=== PATIENT | female | born 1990 | race American Indian/Alaskan Native ===

== ENCOUNTER 2017-09-09 11:20 | Emergency (ER) | payer OTHER ==
[2017-09-09 11:37] VITALS: BMI 18.0
[2017-09-09 11:41] VITALS: RESP 18; O2SAT 99
[2017-09-09] MEDS ORDERED: Sodium Chloride 0.9% 1,000 ML IV STA (11:50)
--- NOTE | 2017-09-09 11:55 | ED PDOC ---
Arrival/HPI - General Chief Complaint: Headache Time Seen by Provider: 09/09/17 11:37 Historian: Patient - History of Present Illness Time/Duration: Other (this morning) Symptom Onset: Gradual Symptom Course: Worsening Quality: Aching Severity Level: Moderate Activities at Onset: Rest Associated Symptoms (Text): 09/09/17 11:52 Patient reports a history of sickle cell anemia. She reports that this morning she woke up with multiple joint pains both elbows and knees and hips. She reports this is her usual crisis. She also reports that she tripped and fell in the kitchen yesterday falling forward and striking her forehead against a wall. She complains of a headache today. No loss of consciousness. No syncope. No dizziness or lightheadedness. No numbness tingling or paresthesias. No weakness. No nausea or vomiting. No neck pain. No back pain. No cough congestion or URI. No shortness of breath. No abdominal pain. No genitourinary symptoms. No travel or exposure. LMP was 3 days ago. No fever or chills. Past Medical History - Cardiac Hx Cardiac Disorders: No - Pulmonary Hx Respiratory Disorders: No - Neurological Hx Neurological Disorder: No - HEENT Hx HEENT Disorder: No - Renal Hx Renal Disorder: No - Endocrine/Metabolic Hx Endocrine Disorders: No - Hematological/Oncological Hx Blood Disorders: Yes Hx Sickle Cell Disease: Yes - Integumentary Hx Dermatological Disorder: No - Musculoskeletal/Rheumatological Hx Musculoskeletal Disorders: No - Gastrointestinal Hx Gastrointestinal Disorders: No - Genitourinary/Gynecological Hx Genitourinary Disorders: No - Psychiatric Hx Psychophysiologic Disorder: No Hx Substance Use: No Family/Social History - Physician Review Nursing Documentation Reviewed: Yes Family/Social History: Unknown Family HX Smoking Status: Never Smoked Hx Alcohol Use: No Hx Substance Use: No Allergies/Home Meds Allergies/Adverse Reactions: Allergies apple Adverse Reaction (Verified 09/09/17 11:36) VOMITING banana Adverse Reaction (Verified 09/09/17 11:36) VOMITING peach Adverse Reaction (Verified 09/09/17 11:36) VOMITING pear Adverse Reaction (Verified 09/09/17 11:36) VOMITING pineapple Adverse Reaction (Verified 09/09/17 11:36) VOMITING strawberry Adverse Reaction (Verified 09/09/17 11:36) VOMITING Review of Systems - Physician Review All systems were reviewed & negative as marked: Yes - Review of Systems Constitutional: absent: Fatigue, Fevers Respiratory: absent: SOB, Cough, Sputum, Wheezing Cardiovascular: absent: Chest Pain, Palpitations, Syncope Gastrointestinal: absent: Abdominal Pain, Nausea, Vomiting Genitourinary Female: absent: Dysuria, Frequency, Hematuria, Vaginal Bleeding, Vaginal Discharge Musculoskeletal: Arthralgias. absent: Back Pain, Neck Pain Neurological: Headache. absent: Dizziness, Focal Weakness, Gait Changes, Speech Changes, Facial Droop, Disequilibrium, Seizure Physical Exam Vital Signs Temp Pulse Resp BP Pulse Ox 09/09/17 13:25 72 18 108/64 99 09/09/17 11:40 79 18 99 09/09/17 11:36 97.9 F 123/83 Temperature: Afebrile Blood Pressure: Normal Pulse: Regular Respiratory Rate: Normal Appearance: Positive for: Well-Appearing, Non-Toxic, Comfortable, Other ( appears comfortable and in no distress.) Pain Distress: None Mental Status: Positive for: Alert and Oriented X 3 - Systems Exam Head: Present: Atraumatic, Normocephalic Pupils: Present: PERRL Extroacular Muscles: Present: EOMI Conjunctiva: Present: Normal Ears: Present: NORMAL TM, Normal Canal. No: Erythema Mouth: Present: Moist Mucous Membranes Pharnyx: No: ERYTHEMA, EXUDATE, TONSILS ENLARGED Neck: Present: Normal Range of Motion Respiratory/Chest: Present: Clear to Auscultation, Good Air Exchange. No: Respiratory Distress, Accessory Muscle Use Cardiovascular: Present: Regular Rate and Rhythm, Normal S1, S2. No: Murmurs Abdomen: No: Tenderness, Distention, Peritoneal Signs, Rebound, Guarding Back: Present: Normal Inspection. No: CVA Tenderness, Midline Tenderness, Paraspinal Tenderness Upper Extremity: Present: Normal Inspection, Normal ROM, NORMAL PULSES, Neurovascularly Intact. No: Cyanosis, Edema, Tenderness, Swelling, Erythema, Deformity Lower Extremity: Present: Normal Inspection, Normal ROM, Neurovascularly Intact. No: Edema, CALF TENDERNESS, Tenderness, Swelling, Erythema, Deformity Neurological: Present: GCS=15, CN II-XII Intact, Speech Normal Skin: Present: Warm, Dry, Normal Color. No: Rashes Psychiatric: Present: Alert, Oriented x 3, Normal Insight, Normal Concentration Medical Decision Making ED Course and Treatment: 09/09/17 13:22 Pain is markedly improved with Toradol and IV fluids. 09/09/17 14:33 Patient feels markedly better. Her reticulocyte count is elevated. This is consistent with her sickle cell crisis. She will be discharged home with her . She has Percocet at home and does not need a prescription. She will follow up with PMD. Follow up in ER as needed. - Lab Interpretations Lab Results: 09/09/17 12:45 09/09/17 12:45 Lab Results 09/09/17 12:45: Sodium 146, Potassium 3.6, Chloride 108 H, Carbon Dioxide 27, Anion Gap 15, BUN 5 L, Creatinine 0.6 L, Est GFR ( Amer) > 60, Est GFR ( Non-Af Amer) > 60, Random Glucose 74, Calcium 9.8, Total Bilirubin 6.3 H, AST 80 H, ALT 41, Alkaline Phosphatase 74, Total Protein 9.1 H, Albumin 4.6, Globulin 4.5, Albumin/Globulin Ratio 1.0 L 09/09/17 12:45: PT 14.8 H, INR 1.28 H, APTT 29.7 09/09/17 12:45: WBC 10.3, RBC 2.90 L, Hgb 9.2 L, Hct 25.6 L, MCV 88.3, MCH 31.7 , MCHC 35.9, RDW 20.0 H, Plt Count 479 H, MPV 10.0, Gran % 43.4 L, Lymph % (Auto ) 40.4 H, [place] % (Auto) 15.1 H, Eos % (Auto) 0.7 L, Baso % (Auto) 0.4, Gran # 4.47, Lymph # (Auto) 4.2 H, [place] # (Auto) 1.6 H, Eos # (Auto) 0.1, Baso # (Auto ) 0.04, Retic Count 17.27 H* 09/09/17 12:00: Urine Color Yellow, Urine Appearance Clear, Urine pH 6.0, Ur Specific [place] 1.010, Urine Protein Negative, Urine Glucose (UA) Negative, Urine Ketones Negative, Urine Blood Negative, Urine Nitrate Negative, Urine Bilirubin Negative, Urine Urobilinogen 2.0 H, Ur Leukocyte Esterase Negative, Urine HCG, Qual Negative - Medication Orders Current Medication Orders: Discontinued Medications Sodium Chloride (Sodium Chloride 0.9%) 1,000 mls @ 1,000 mls/hr IV .Q1H STA Stop: 09/09/17 12:49 Last Admin: 09/09/17 12:24 Dose: 1,000 mls/hr eMAR Start Stop Document 09/09/17 12:24 Max (Rec: 09/09/17 12:24 [id number] Intravenous Solution Start Date 09/09/17 Start Time 12:24 End Date 09/09/17 End time 13:24 Total Infusion Time 60 Ketorolac Tromethamine (Toradol) 15 mg IVP ONCE ONE Stop: 09/09/17 12:18 Last Admin: 09/09/17 12:24 Dose: 15 mg MAR Pain Assessment Document 09/09/17 12:24 [facility] (Rec: 09/09/17 12:25 [id number] Pain Reassessment Is this a pain reassessment? No Sleep Is patient sleeping during reassessment? No Presence of Pain Presence of Pain Yes IVP Administration Document 09/09/17 12:24 [facility] (Rec: 09/09/17 12:25 [id number] Charges for Administration # of IVP Administrations 1 Disposition/Present on Arrival - Present on Arrival Any Indicators Present on Arrival: No History of DVT/PE: No History of Uncontrolled Diabetes: No Urinary Catheter: No History of Decub. Ulcer: No History Surgical Site Infection Following: None - Disposition Have Diagnosis and Disposition been Completed?: Yes Diagnosis: Sickle cell crisis Disposition: HOME/ ROUTINE Disposition Time: 14:34 Patient Plan: Discharge Condition: IMPROVED Discharge Instructions (ExitCare): Sickle Cell Disease Additional Instructions: Follow-up with PMD. Follow up in ER as needed. Percocet from home as needed. Forms: [place] ([place])
[2017-09-09 12:14] LABS: URINE BILIRUBIN NEGATIVE (NEGATIVE); URINE BLOOD NEGATIVE (NEGATIVE); URINE GLUCOSE (UA) NEGATIVE (NEGATIVE); URINE LEUKOCYTE ESTERASE NEGATIVE Leu/uL (NEGATIVE); URINE PROTEIN NEGATIVE mg/dL (<30 mg/dL)
[2017-09-09 12:16] LABS: URINE APPEARANCE CLEAR (CLEAR); URINE COLOR YELLOW (YELLOW)
[2017-09-09 12:17] LABS: HCG,QUALITATIVE URINE NEGATIVE (NEGATIVE)
[2017-09-09 12:53] LABS: BASO # 0.04 K/mm3 (0.0-2.0); BASO % 0.4 % (0.0-3.0); EOS # 0.1 (0.0-0.7); EOS % 0.7 % (1.5-5.0); GRAN # 4.47 (1.4-6.5); GRAN % 43.4 % (50.0-68.0); HEMOGLOBIN 9.2 g/dL (12.0-16.0); LYMPH # 4.2 (1.2-3.4); LYMPH % 40.4 % (22.0-35.0); MEAN CELL VOLUME 88.3 fl (80.0-105.0); MEAN CORPUSCULAR HEMOGLOBIN 31.7 pg (25.0-35.0); MEAN CORPUSCULAR HGB CONC 35.9 g/dl (31.0-37.0); MONO # 1.6 (0.1-0.6); MONO % 15.1 % (1.0-6.0); PLATELET COUNT 479 10^3/uL (120.0-450.0); WHITE BLOOD COUNT 10.3 10^3/ul (4.5-11.0)
[2017-09-09 13:02] LABS: INR 1.28 (0.93-1.08); PARTIAL THROMBOPLASTIN TIME 29.7 Seconds (25.1-36.5); PROTHROMBIN TIME 14.8 SECONDS (9.4-12.5)
[2017-09-09 13:11] LABS: ALBUMIN 4.6 g/dL (3.0-4.8); ALT/SGPT 41 U/L (7-56); AST/SGOT 80 U/L (14-36); BLOOD UREA NITROGEN 5 mg/dL (7-21); CALCIUM 9.8 mg/dL (8.4-10.5); GFR AFRICAN-AMERICAN > 60; GFR NON-AFRICAN AMERICAN > 60
[2017-09-09 15:17] VITALS: BP 107/65; PULSE 78; TEMP 98
== END 2017-09-09 15:19 | disposition home or self-care (01) ==
LOC: ED 11:20
DX: D57.819 Other sickle-cell disorders with crisis, unspecified (principal)
CPT/HCPCS: 80053; 81003; 84703; 85025; 85044; 85610; 85730; 96361; 96374; 99285; J1885; J7040

== ENCOUNTER 2018-04-23 22:06 | Emergency (ER) | payer OTHER ==
[2018-04-23 22:07] VITALS: BMI 18.0
[2018-04-23 22:24] VITALS: TEMP 98.4
--- NOTE | 2018-04-23 22:30 | ED PDOC ---
Arrival/HPI - General Historian: Patient - History of Present Illness Narrative History of Present Illness (Text): 04/23/18 22:27 28 y/o female, pmh including sickle cell, nkda, c/o feeling bilateral knee joint pain like her usual sickle cell crisis. Pt. stated that she is 33 weeks , , LMP 09/01/2017, complaining about bilateral knee pain this evening, feels like her usual sickle cell crisis pain, stated that she doesn't want any narcotics, took tylenol prior to arrival, no vaginal bleeding or spotting, no abdominal or pelvic pain, no fever/cough/chest pain/shortness of breath, no night sweat, no rash, no other medical or psychological complaints. Past Medical History - Provider Review Nursing Documentation Reviewed: Yes - Cardiac Hx Cardiac Disorders: No - Pulmonary Hx Respiratory Disorders: No - Neurological Hx Neurological Disorder: No - HEENT Hx HEENT Disorder: No - Renal Hx Renal Disorder: No - Endocrine/Metabolic Hx Endocrine Disorders: No - Hematological/Oncological Hx Blood Disorders: Yes Hx Sickle Cell Disease: Yes - Integumentary Hx Dermatological Disorder: No - Musculoskeletal/Rheumatological Hx Musculoskeletal Disorders: No - Gastrointestinal Hx Gastrointestinal Disorders: No - Genitourinary/Gynecological Hx Genitourinary Disorders: No - Psychiatric Hx Psychophysiologic Disorder: No Hx Substance Use: No Family/Social History - Physician Review Nursing Documentation Reviewed: Yes Family/Social History: Unknown Family HX Smoking Status: Never Smoked Hx Alcohol Use: No Hx Substance Use: No Allergies/Home Meds Allergies/Adverse Reactions: Allergies apple Adverse Reaction (Verified 04/23/18 22:32) VOMITING banana Adverse Reaction (Verified 04/23/18 22:32) VOMITING peach Adverse Reaction (Verified 04/23/18 22:32) VOMITING pear Adverse Reaction (Verified 04/23/18 22:32) VOMITING pineapple Adverse Reaction (Verified 04/23/18 22:32) VOMITING strawberry Adverse Reaction (Verified 04/23/18 22:32) VOMITING Review of Systems - Review of Systems Constitutional: absent: Fatigue, Fevers Eyes: absent: Vision Changes ENT: absent: Hearing Changes Respiratory: absent: SOB, Cough Cardiovascular: absent: Chest Pain Gastrointestinal: absent: Abdominal Pain, Nausea, Vomiting Musculoskeletal: Arthralgias. absent: Back Pain, Neck Pain, Joint Swelling Skin: absent: Rash Neurological: absent: Headache, Dizziness Psychiatric: absent: Anxiety Physical Exam Vital Signs Reviewed: Yes Vital Signs Temp Pulse Resp BP Pulse Ox 04/23/18 22:23 98.4 F 82 18 131/87 96 Temperature: Afebrile Blood Pressure: Normal Pulse: Regular Respiratory Rate: Normal Appearance: Positive for: Well-Appearing, Non-Toxic, Comfortable Pain Distress: Moderate Mental Status: Positive for: Alert and Oriented X 3 - Systems Exam Head: Present: Atraumatic, Normocephalic Pupils: Present: PERRL Extroacular Muscles: Present: EOMI Conjunctiva: Present: Normal Mouth: Present: Moist Mucous Membranes Neck: Present: Normal Range of Motion Respiratory/Chest: Present: Clear to Auscultation, Good Air Exchange. No: Respiratory Distress, Accessory Muscle Use Cardiovascular: Present: Regular Rate and Rhythm, Normal S1, S2. No: Murmurs Abdomen: No: Tenderness, Distention, Peritoneal Signs Back: Present: Normal Inspection Upper Extremity: Present: Normal Inspection. No: Cyanosis, Edema Lower Extremity: Present: Normal Inspection, NORMAL PULSES, Normal ROM, Neurovascularly Intact, Capillary Refill < 2 s. No: Edema, Tenderness, Swelling, Deformity, Other Neurological: Present: GCS=15, CN II-XII Intact, Speech Normal, Motor Func Grossly Intact, Gait Normal, Memory Normal Skin: Present: Warm, Dry, Normal Color. No: Rashes Psychiatric: Present: Alert, Oriented x 3, Normal Insight, Normal Concentration Medical Decision Making ED Course and Treatment: 04/23/18 22:31 -Labs -FHR -IVF/oxygen -Observe and reassess 04/24/18 01:12 -Labs show wbc 16.2 from 10.3 (afebrile, likely pain and stress induced), Hgb 8.8 from 9.2 (she is seeing specialist and under treatment), Total bili 3.7 from 6.3, Alk phos 192 from 74 -Beta hcg [id number] -Reticulocyte cell count 18.16 from 17.27 -Type and screen -FHR 134 -UA show mild UTI -Pt. feels much better, no cardiopulmonary complaints, no leg pain now, refused pain medication, offered transfer to L&D care point or [facility] but she declined, stated that she would see her own obgyn today for follow up and her own pmd as well. Discussed with DR. Solis about the plan of care and pt's request, he agreed with patient's decision. -Discharge home with education on stay hydrated, tylenol for pain as needed, follow up with your own pmd and rotary cutter feeder/oncologist/obgyn today, return to the ER for any new or worsening signs or symptoms. - PA / NIGHT SHIFT SUPERVISOR / Resident Statement MD/DO has reviewed & agrees with the documentation as recorded. Disposition/Present on Arrival - Present on Arrival Any Indicators Present on Arrival: No History of DVT/PE: No History of Uncontrolled Diabetes: No Urinary Catheter: No History of Decub. Ulcer: No History Surgical Site Infection Following: None - Disposition Have Diagnosis and Disposition been Completed?: Yes Diagnosis: Sickle cell crisis Disposition: HOME/ ROUTINE Disposition Time: 01:15 Patient Plan: Discharge Condition: IMPROVED Discharge Instructions (ExitCare): Sickle Cell Disease Additional Instructions: Discharge home with education on stay hydrated, tylenol for pain as needed, follow up with your own pmd and rotary cutter feeder/oncologist/obgyn today, return to the ER for any new or worsening signs or symptoms. Prescriptions: Acetaminophen [Tylenol 325mg tab] 2 tab PO QID PRN #30 tab PRN Reason: Other Referrals: Caryn Low MD [Staff Provider] - Follow up with primary Mirza Ceballos MD [Staff Provider] - Follow up with primary Forms: WORK NOTE
[2018-04-23] MEDS ORDERED: Sodium Chloride 0.9% 1,000 ML IV STA ×2 (22:35→23:36)
[2018-04-23] MEDS ORDERED: Sodium Chloride 0.9% 1,000 ML IV SCH (22:45)
[2018-04-23 23:15] LABS: BASO # 0.05 K/mm3 (0.0-2.0); BASO % 0.3 % (0.0-3.0); EOS # 0.3 (0.0-0.7); EOS % 1.7 % (1.5-5.0); GRAN # 10.21 (1.4-6.5); GRAN % 63.1 % (50.0-68.0); HEMOGLOBIN 8.8 g/dL (12.0-16.0); LYMPH # 3.9 (1.2-3.4); LYMPH % 24.2 % (22.0-35.0); MEAN CELL VOLUME 92.2 fl (80.0-105.0); MEAN CORPUSCULAR HEMOGLOBIN 32.7 pg (25.0-35.0); MEAN CORPUSCULAR HGB CONC 35.5 g/dl (31.0-37.0); MEAN PLATELET VOLUME 11.1 fl (7.0-11.0); MONO # 1.7 (0.1-0.6); MONO % 10.7 % (1.0-6.0); RBC 2.69 10^6/uL (3.5-6.1); RED CELL DISTRIBUTION WIDTH 21.1 % (11.5-14.5); WHITE BLOOD COUNT 16.2 10^3/uL (4.5-11.0)
[2018-04-23 23:21] LABS: ALB/GLOB RATIO 0.9 (1.1-1.8); ALBUMIN 3.6 g/dL (3.0-4.8); ALT/SGPT 23 U/L (7-56); AST/SGOT 60 U/L (14-36); BLOOD UREA NITROGEN 3 mg/dL (7-21); CALCIUM 9.1 mg/dL (8.4-10.5); GFR NON-AFRICAN AMERICAN > 60
[2018-04-24 00:28] LABS: URINE BILIRUBIN NEGATIVE (NEGATIVE); URINE BLOOD NEGATIVE (NEGATIVE); URINE GLUCOSE (UA) NEGATIVE (NEGATIVE); URINE LEUKOCYTE ESTERASE TRACE Leu/uL (NEGATIVE); URINE PROTEIN NEGATIVE mg/dL (<30 mg/dL)
[2018-04-24 00:31] LABS: URINE APPEARANCE CLOUDY (CLEAR); URINE COLOR YELLOW (YELLOW)
[2018-04-24] MEDS ORDERED: Sodium Chloride 0.9% 1,000 ML IV SCH (00:45)
[2018-04-24 01:03] LABS: BASO # 0.04 K/mm3 (0.0-2.0); BASO % 0.2 % (0.0-3.0); EOS # 0.3 (0.0-0.7); EOS % 1.7 % (1.5-5.0); GRAN # 10.87 (1.4-6.5); GRAN % 65.3 % (50.0-68.0); HEMOGLOBIN 7.9 g/dL (12.0-16.0); LYMPH # 3.7 (1.2-3.4); LYMPH % 22.2 % (22.0-35.0); MEAN CELL VOLUME 91.6 fl (80.0-105.0); MEAN CORPUSCULAR HEMOGLOBIN 33.2 pg (25.0-35.0); MEAN CORPUSCULAR HGB CONC 36.2 g/dl (31.0-37.0); MEAN PLATELET VOLUME 10.7 fl (7.0-11.0); MONO # 1.8 (0.1-0.6); MONO % 10.6 % (1.0-6.0); RBC 2.38 10^6/uL (3.5-6.1); RED CELL DISTRIBUTION WIDTH 20.5 % (11.5-14.5); WHITE BLOOD COUNT 16.7 10^3/uL (4.5-11.0)
[2018-04-24 01:22] LABS: URINE RBC NEGATIVE /hpf (0-2); URINE WBC 0 - 2 /hpf (0-6)
[2018-04-24 01:23] LABS: URINE BACTERIA FEW (NEG)
[2018-04-24 01:58] VITALS: BP 107/67; PULSE 68; RESP 18; O2SAT 96
== END 2018-04-24 01:56 | disposition home or self-care (01) ==
LOC: ED 22:06
DX: D57.00 Hb-SS disease with crisis, unspecified (principal); O26.893 Other specified pregnancy related conditions, third trimester; Z3A.33 33 weeks gestation of pregnancy
CPT/HCPCS: 80053; 81001; 84702; 85025; 85044; 86850; 86900; 87086; 96360; 96361; 99283; J7030